=== PATIENT | female | born 1935 | race Caucasian/White ===

== ENCOUNTER → 2018-01-23 | Outpatient (CLI) | payer OTHER, BC ==
--- NOTE | 2018-01-23 13:40 | DIAGNOSTIC IMAGING REPORT ---
VIDEO SWALLOW HISTORY: OROPHARYNGEAL DYSPHAGIA TECHNIQUE: Video fluoroscopic evaluation of swallowing was performed in the AP and lateral projections by the speech pathology staff. The patient is fed nectar-thick and thin liquid barium, a barium coated wafer, and barium pudding. FLUOROSCOPY TIME: 3.5 minutes. NUMBER OF FLUOROSCOPY IMAGES: 0 COMPARISON STUDY: None. FINDINGS: The patient swallowed thin liquid barium and nectar thick liquid without difficulty. There is no penetration or aspiration. The patient swallowed pudding and a cracker with paste. There is no aspiration or penetration. There was vallecular residue. This is cleared with a liquid wash. There is mild disordered esophageal motility. IMPRESSION: 1. No evidence of aspiration or penetration. 2. Please see the speech pathologist report for detailed findings and recommendations. Electronically signed by: Elgin Martin M.D. 01/23/2018 1:38 PM Dictated Date/Time: 01/23/2018 1:37 PM
--- NOTE | 2018-01-23 15:52 | SWALLOWING EVALUATION ---
HISTORY: This 83 year old woman was referred to [facility] ([facility]) for a Video Fluoroscopic Swallow Study (VFSS) in order to rule out aspiration, and identify the safest consistencies for oral intake. The patient is reporting that she feels foods getting "stuck" in her throat and has to cough it up. She also states she feels foods collecting in the anterior lower sulcus. She denies any significant PMH (limited information provided regarding this) other than back surgery. She denies any history of reflux, pneumonia, or weight loss. Current diet is regular. PROCEDURE: The patient was seen in the Radiology Department of [facility] for the VFSS. Cursory examination of the oral cavity revealed the patient to have upper and lower dentures of adequate fit. Movement of the articulators was wnl for her age. The patient was positioned upright on a stool for the procedure and was viewed in both the Anterior-Posterior (A-P) and Lateral planes. Volitional phonation exercises completed in the A-P plane revealed bilateral vocal fold movement. Vocal intensity was wnl. In the lateral plane, the patient was given the following boluses: 1 tsp. thin liquid barium x 2, single swallow thin liquid barium self-presented from a cup, 1 tsp. nectar-thick liquid barium, single swallow nectar-thick liquid barium self-presented from a cup, 1 tsp. barium pudding, and 1 club cracker coated in barium pudding. The patient was then repositioned into the A-P plane and given the following boluses: 1 tsp. nectar thick barium, and 1 tsp. barium pudding. RESULTS: Oral Stage: Lip closure was adequate. The patient was able to maintain a cohesive liquid bolus in the oral cavity upon command. Mastication was slow and prolonged, as was lingual motion for bolus transport. There was a collection of residue along the tongue and palate after the initial swallow. The initiation of the pharyngeal swallow was delayed and triggered when the bolus head reached the valleculae. There was no residual barium in the anterior lower sulcus. Pharyngeal Stage: Soft palate elevation was complete. Laryngeal elevation revealed partial superior movement of the thyroid cartilage and partial approximation of the arytenoids to the epiglottic base. Anterior hyoid excursion was partially reduced. Epiglottic deflection was complete. Laryngeal vestibular closure was in-complete, as evidenced by a narrow column of contrast located in the vestibule at the height of the swallow. The pharyngeal stripping wave was present yet diminished. Pharyngeal contraction was complete. There was partial distention and duration to the opening of the pharyngoesophageal segment (PES). Tongue base retraction was reduced, with a wide column of contrast located between the tongue base and pharyngeal wall during the swallow. There was retention in the valleculae after the swallow. There was evidence of inconsistent laryngeal penetration (small amounts) of thin liquids. Otherwise, there was NO aspiration for this study. She did present with weak tongue base retraction, resulting in heavy retention after the swallow with pudding and cracker boluses. A second swallow did not assist to clear, however a liquid wash was effective to clear a majority of the retention. No other difficulty identified. Esophageal Stage: There was mid-distal esophageal retention with retrograde flow below the PES. There was evidence suggestive of a prominent cricopharyngeus impression. This is suggestive of esophageal dysmotility (suspect presbyesophagus) and reflux. SUMMARY/RECOMMENDATIONS: The patient presents with mild-moderate oly-pharyngeal dysphagia. She also presents with s/s esophageal dysfunction. Therefore the following is recommended: 1. Soft "SLIPPERY" diet and THIN liquids: choose foods that are moist, loose, slippery; avoid foods that are doughy, thick, dry (e.g., soft breads, thick meat, etc.). Add condiments to foods such as sauce or gravy to assist in keeping foods moist. 2. Aspiration and GERD precautions: Straws OK. FULLY UPRIGHT for meals and for 30 minutes after meals; head of bed at least 30-degrees at all times. 3. Safe swallow strategies: Alternate solids and liquids 1:1 while eating. Rest breaks while eating. Small frequent meals. Medications crushed or placed whole in applesauce or pudding. 5. Follow up with GI for management for esophageal dysfunction (medications and/or further testing) as appropriate. 6. Should the patient continue to present with c/o pharyngeal retention following implementation of the above strategies, she would benefit from outpatient or home health [employer] services for carryover of diet, safe swallow strategies, and establishing a generalized pharyngeal strengthening exercise program (with focus on tongue base/Alicia, effortful swallow). A summary of the results and recommendations were provided to the patient with verbal understanding. The patient was provided with verbal and written education on a slippery diet for improved comfort while eating. She verbalized understanding. Thank you for referral of this patient. Please contact me at if any additional information is needed.
== END | disposition home or self-care (01) ==
LOC: C.RAD 12:44
PROVIDERS: ATTEND Internal Medicine
DX: R13.12 Dysphagia, oropharyngeal phase (principal)